=== PATIENT | male | born 1985 | race Two or more races ===

== ENCOUNTER 2021-07-22 06:31 | Inpatient (IN) | payer BC, OTHER ==
[~2021-07-22] VITALS: Ht 172.7 cm; Wt 112.1 kg
[2021-07-22] MEDS ORDERED: LACTATED RINGER'S 1,000 ML IV ONE ×2 (07:30→10:00)
[2021-07-22] MEDS ORDERED: IOHEXOL 300 MG/ML 100ML BOTTLE IJ ONE (07:31)
[2021-07-22 08:54] LABS: Potassium 3.8 mmol/L (3.5-5.1)
[2021-07-22 08:58] LABS: Basophils # (auto) 0 10 ^3/uL (0-0.2); Basophils % (auto) 0.3 % (0.0-2.0); Eosinophils # (auto) 0 10 ^3/uL (0-0.8); Lymphocytes # (auto) 1.6 10 ^3/uL (0.4-5.4); Lymphocytes % (auto) 9.8 % (10.0-50.0); Monocytes # (auto) 1.7 10 ^3/uL (0-1.3); Monocytes % (auto) 10.4 % (0.0-12.0); Neutrophils # (auto) 13.3 10 ^3/uL (1.6-8.6); Neutrophils % (auto) 79.5 % (37.0-80.0); Red Blood Cells 5.66 10^6/uL (4.5-5.90); White Blood Cell 16.8 10^3/uL (4.4-10.8)
[2021-07-22 08:59] LABS: Hematocrit 49.1 % (41.0-53.0); Hemoglobin 16.8 g/dL (13.5-17.5); Mean Corpuscular Hemoglobin 29.7 pg (28.0-32.0); Mean Corpuscular Hgb Conc. 34.2 g/dL (32.0-36.0); Mean Corpuscular Volume 86.7 fL (80.0-100.0); Red Cell Distribution Width 13.4 % (11.8-14.3)
[2021-07-22 09:02] LABS: Albumin 3.5 g/dL (3.4-5.0); Bilirubin, Total 1.6 mg/dL (0.2-1.0); Calcium 9.1 mg/dL (8.5-10.1); Total Protein 8.8 g/dL (6.4-8.2)
[2021-07-22] MEDS ORDERED: CLINDAMYCIN 600MG IV 50 ML IV ONE (10:00)
[2021-07-22] MEDS ORDERED: VANCOMYCIN 1GM/250ML 250 ML IV ONE (10:00)
[2021-07-22] MEDS ORDERED: PIPERACILLIN-TAZOB 3.375GM 100 ML IV ONE (10:00)
[2021-07-22 10:55] LABS: Urine Blood 1+ /uL (Negative); Urine Hyaline Cast FEW /lpf (0 - 2); Urine Mucus FEW (None Seen); Urine Specific Gravity 1.048 (1.001-1.035); Urine WBC 2 /hpf (0 - 3)
[2021-07-22 10:56] LABS: Urine Bacteria FEW /hpf (None Seen)
[2021-07-22] MEDS ORDERED: MORPHINE SULFATE INJECTION 2 MG/ML SYRG IV PRN (12:45)
[2021-07-22] MEDS ORDERED: ONDANSETRON HCL 4 MG/2 ML VIAL IV PRN (12:45)
[2021-07-22] MEDS ORDERED: VANCOMYCIN PER PHARMACY 0 MG IV SCH (12:45)
[2021-07-22] MEDS ORDERED: MORPHINE SULFATE 4 MG/ML SYR/VIAL IV PRN (12:45)
[2021-07-22] MEDS ORDERED: DEXTROSE (50%) 50ML SYRG IV PRN (12:45)
[2021-07-22] MEDS ORDERED: DOCUSATE SOD 100 MG CAP PO PRN (12:45)
[2021-07-22] MEDS ORDERED: NITROGLYCERIN 0.4 MG SL TAB SL PRN (12:45)
[2021-07-22] MEDS ORDERED: ACETAMINOPHEN 325 MG TAB PO PRN (12:45)
[2021-07-22] MEDS ORDERED: HYDROcodone-ACET 5/325MG TAB PO PRN (12:45)
[2021-07-22] MEDS: SODIUM CHLORIDE 0.9% 1,000 ML IV SCH ×2 (13:00→15:35)
[2021-07-22 14:00] VITALS: BP 120/72
[2021-07-22] MEDS: PIPERACILLIN-TAZOB 3.375GM 100 ML IV SCH ×2 (15:34→21:56)
[2021-07-22 17:00] VITALS: BP 111/57
[2021-07-22] MEDS: ACCU-CHEK COMFORT CURVE STRIP VI SCH ×2 (17:00→22:08)
[2021-07-22] MEDS ORDERED: SODIUM CHLORIDE 0.9% 1,000 ML IV SCH (17:00)
[2021-07-22] MEDS: InsuLIN REG 1unit/0.01ml Soln (100units/ml) SC SCH (17:55)
[2021-07-22] MEDS: VANCOMYCIN 1GM/250ML 250 ML IV SCH (18:35)
[2021-07-22] MEDS ORDERED: ACETAMINOPHEN 650 mg PER 20.3 mL UD GT PRN (18:45)
[2021-07-22] MEDS ORDERED: METF-370 PO (18:53)
[2021-07-22] MEDS ORDERED: ACETAMINOPHEN 650 mg PER 20.3 mL UD PO PRN (19:30)
[2021-07-22] MEDS ORDERED: InsuLIN REG 1unit/0.01ml Soln (100units/ml) SC SCH (22:00)
[2021-07-23] MEDS: VANCOMYCIN 1GM/250ML 250 ML IV SCH ×2 (02:22→10:03)
[2021-07-23 05:00] VITALS: BP 118/73
[2021-07-23 06:07] LABS: RPR Non Reactive (Non Reactive)
[2021-07-23 06:16] LABS: Basophils # (auto) 0 10 ^3/uL (0-0.2); Basophils % (auto) 0.3 % (0.0-2.0); Eosinophils # (auto) 0.1 10 ^3/uL (0-0.8); Eosinophils % (auto) 0.6 % (0.0-7.0); Hematocrit 40.6 % (41.0-53.0); Hemoglobin 14.6 g/dL (13.5-17.5); Lymphocytes # (auto) 1.7 10 ^3/uL (0.4-5.4); Lymphocytes % (auto) 14.6 % (10.0-50.0); Mean Corpuscular Hemoglobin 30.7 pg (28.0-32.0); Mean Corpuscular Hgb Conc. 35.8 g/dL (32.0-36.0); Mean Corpuscular Volume 85.7 fL (80.0-100.0); Monocytes % (auto) 8.8 % (0.0-12.0); Neutrophils # (auto) 8.9 10 ^3/uL (1.6-8.6); Neutrophils % (auto) 75.7 % (37.0-80.0); Nucleated Red Blood Cells % 0.1 %; Red Blood Cells 4.74 10^6/uL (4.5-5.90); Red Cell Distribution Width 13.1 % (11.8-14.3); White Blood Cell 11.8 10^3/uL (4.4-10.8)
[2021-07-23] MEDS: PIPERACILLIN-TAZOB 3.375GM 100 ML IV SCH (06:28)
[2021-07-23] MEDS: InsuLIN REG 1unit/0.01ml Soln (100units/ml) SC SCH ×2 (06:33→11:49)
[2021-07-23] MEDS: ACCU-CHEK COMFORT CURVE STRIP VI SCH ×2 (06:34→11:47)
[2021-07-23 06:40] LABS: Albumin 2.8 g/dL (3.4-5.0); Calcium 8.4 mg/dL (8.5-10.1); Potassium 3.6 mmol/L (3.5-5.1)
[2021-07-23 06:43] LABS: BUN/Creatinine Ratio 11.2; Bilirubin, Total 1.4 mg/dL (0.2-1.0)
[2021-07-23 07:35] LABS: INR 1.21 (0.9-1.15)
[2021-07-23 07:46] LABS: Partial Thromboplastin Time 27.8 sec (23.6-33.0)
[2021-07-23 08:25] VITALS: BP 112/71
[2021-07-23] MEDS ORDERED: INSULIN NPH Isophane (HUMAN) 1unit/0.01ml Susp(100units/ml) SC SCH ×2 (11:30→17:30)
[2021-07-23] MEDS ORDERED: SODIUM CHLORIDE 0.9% 1,000 ML IV SCH (11:30)
[2021-07-23] MEDS ORDERED: VANCOMYCIN 1GM/250ML 250 ML IV SCH (16:00)
== END 2021-07-23 12:50 | disposition left against medical advice (07) | DRG 872 ==
LOC: ER 06:31 → EAST 12:45
PROVIDERS: ADMIT Nurse Practitioner Family; ATTEND Hospitalist
DX: A41.9 Sepsis, unspecified organism (principal); E87.1 Hypo-osmolality and hyponatremia; L02.214 Cutaneous abscess of groin; L03.314 Cellulitis of groin; E11.65 Type 2 diabetes mellitus with hyperglycemia; Z20.822 Contact with and (suspected) exposure to COVID-19; I10 Essential (primary) hypertension; Z83.3 Family history of diabetes mellitus
CPT/HCPCS: 36415; 74177; 80053; 80202; 81001; 82962; 83036; 83605; 85025; 85610; 85652; 85730; 86141; 86592; 86703; 86850; 86900; 86901; 87040; 87086; 87426; 96365; 96368; G0378; J1815; J2543; J3490